=== PATIENT | female | born 1965 ===

== ENCOUNTER 2018-06-16 08:39 | Day surgery (SDC) | payer OTHER ==
[2018-06-16] VITALS (8 sets, daily range): BP systolic 119–132; BP diastolic 71–83
[~2018-06-16] VITALS: Ht 157.5 cm; Wt 62.6 kg
--- NOTE | 2018-06-16 07:55 | Anethesia Preoperative Eval ---
Anesthesia Pre-op PMH/ROS General Date of Evaluation: Jun 16, 2018 Anesthesiologist: Elie ASA Score: ASA 2 Mallampati Score Class I : Soft palate, uvula, fauces, pillars visible Class II: Soft palate, uvula, fauces visible Class III: Soft palate, base of uvula visible Class IV: Only hard plate visible Mallampati Classification: Class II Surgeon: Chuck Diagnosis: GERD Surgical Procedure: EGD Anesthesia History: none Family History: no anesthesia problems Allergies: Coded Allergies: No Known Allergies (Unverified , 06/16/18) Medications: see eMAR Patient NPO?: Yes NPO Date: Jun 15, 2018 NPO Time: 22:00 Past Medical History Cardiovascular: Denies: HTN, CAD, DC, valve dz, arrhythmia, other Pulmonary: Denies: asthma, COPD, MAR[place], other Gastrointestinal/Genitourinary: Reports: GERD; Denies: CRI, ESRD, other Neurologic/Psychiatric: Reports: depression/anxiety; Denies: dementia, CVA, TIA, other Endocrine: Denies: DM, hypothyroidism, steroids, other HEENT: Denies: cataract (L), cataract (R), glaucoma, [place] (L), [place] (R), other Hematology/Immune: Denies: anemia, DVT, bleeding disorder, other Musculoskeletal/Integumentary: Denies: OA, RA, DJD, DDD, edema, other PSxH Narrative: Denies Anesthesia Pre-op Phys. Exam Physician Exam see chart Constitutional: NAD Cardiovascular: RRR Respiratory: CTA Airway Exam Mallampati Score: Class II MO: full ROM: full Teeth: intact Anesthesia Pre-op A/P Labs see chart Studies Pre-op Studies: EKG - sr Risk Assessment & Plan Assessment: ASA II Plan: MAC Status Change Before Surgery: No Pre-Antibiotics Drug: N/A Dorothy Gross MD Jun 16, 2018 07:55
--- NOTE | 2018-06-16 10:15 | Short Stay Surgery H&P ---
History of Present Illness History of Present Illness Chief Complaint Abdominal pains/GERDs HPI Maddi Harrison is a 53 year old female who was admitted on for GERD/ abdominal pains Patient History Past Surgeries: (1) Previous section Review of Systems Cardiovascular: Reports: no symptoms Skeletal: Reports: trauma Gastrointestinal: Reports: gastro esophageal reflux disease Genitourinary: Reports: no symptoms Neurologic: Reports: no symptoms Endocrine: Reports: no symptoms Hematologic: Reports: no symptoms Physical Exam Labs Laboratory Tests Test 06/16/18 08:55 Urine HCG, Qualitative Negative (NEGATIVE) Skin: normal HENT: normal Heart: normal Lungs: normal Abdomen: abnormal Extremities: normal Genitourinary: normal Plan Plan of Care Upper GI.endoscopy and biopsy Preop Interventions None. Summary of Findings See the reports Attestation Are the patient's medical conditions optimized for surgery? Jorge Woods MD Jun 16, 2018 10:15
--- NOTE | 2018-06-16 10:16 | Pre-Procedure Note/Attestation ---
Pre-Procedure Note/Attestation Complete Prior to Procedure Planned Procedure: left Procedure Narrative: Examination of the upper GI tract via endoscopy Indications for Procedure Pre-Operative Diagnosis: R/O Gastritis/peptic ulcer/esophagitis Attestation I attest that I discussed the nature of the procedure; its benefits; risks and complications; and alternatives (and the risks and benefits of such alternatives ), prior to the procedure, with the patient (or the patient's legal phone representative). I attest that, if there was a reasonable possibility of needing a blood transfusion, the patient (or the patient's legal phone representative) was given the [facility] standardized written summary, pursuant to the [place] Blood Safety Act ([place] Health and Safety Code # 1645, as amended). I attest that I re-evaluated the patient just prior to the surgery and that there has been no change in the patient's H&P, except as documented below: Jorge Woods MD Jun 16, 2018 10:16
[2018-06-16] MEDS ORDERED: LR 1000ml ONE (10:30)
[2018-06-16] MEDS ORDERED: Lidocaine 1% MPF 10mg/ml 5ml ONE (10:30)
[2018-06-16] MEDS ORDERED: Propofol 200mg/20ml IV ONE (10:30)
[2018-06-16] MEDS ORDERED: OMEPRAZOLE40 M1 ORAL (10:30)
[2018-06-16] MEDS ORDERED: GAVISCON LIQUI355 ML PO (10:34)
[2018-06-16] MEDS ORDERED: ZANTAC150 MG ORAL (10:34)
--- NOTE | 2018-06-16 10:49 | Endoscopy Procedure Note ---
Endoscopy Procedure Note General Indication for Procedure: Abdominal/epigastric pain Procedures Performed: EGD - Completely normal upper GI. endoscopy; biopsy was obtained per random from gastric body. Specimen: yes Pt Tolerated Procedure Well: Yes Estimated Blood Loss: none Anesthesia Anesthesiologist: Dr. Delgadillo Anesthesia: moderate sedation Medications Medication Given: see anesthesia record Inserted Devices Implant(s) used?: No Quality Quality of Bowel Preparation: Excellent Was there any complications?: No GI Core Measures 50 yrs or older w/o bx or poly: Not Applicable 10yrs. F/U not recommended: Not Applicable If not recommended, why?: Med reason:<3 yrs.: System Reason:<3 yrs.: Jorge Woods MD Jun 16, 2018 10:49
--- NOTE | 2018-06-16 10:50 | Discharge Instructions ---
Discharge Instructions Discharge Instructions Follow up with: Visit the docotor after 2 weeks in the office For Congestive Heart Failure Reminder Report to your physician any weight gain of 5 pounds or more in one week. Jorge Woods MD Jun 16, 2018 10:50
--- NOTE | 2018-06-16 11:00 | Immediate Post-Op Evaluation ---
Immediate Post-Op Evalulation Immediate Post-Op Evalulation Procedure: EGD Date of Evaluation: Jun 16, 2018 Time of Evaluation: 11:01 IV Fluids: 300 Blood Products: 0 Estimated Blood Loss: 0 Urinary Output: 0 Blood Pressure Systolic: 129 Blood Pressure Diastolic: 71 Pulse Rate: 79 Respiratory Rate: 16 O2 Sat by Pulse Oximetry: 99 Temperature (Fahrenheit): 97.5 Pain Score (1-10): 0 Nausea: No Vomiting: No Complications 0 Patient Status: awake, reacts, patent, none Hydration Status: adequate Drug: N/A Dorothy Gross MD Jun 16, 2018 11:00
--- NOTE | 2018-06-16 11:01 | 48 Hour Post Anesthesia Eval ---
Post Anesthesia Evaluation Procedure: EGD Date of Evaluation: Jun 16, 2018 Airway: patent Nausea: No Vomiting: No Pain Intensity: 0 Hydration Status: adequate Cardiopulmonary Status: at baseline Mental Status/LOC: patient returned to baseline Post-Anesthesia Complications: 0 Follow-up care needed: ready to discharge Dorothy Gross MD Jun 16, 2018 11:01
--- NOTE | 2018-06-16 16:30 | Pre-op HX & Phy Repo 2 SIG ---
DATE OF ADMISSION: 06/16/2018 HISTORY OF PRESENT ILLNESS: The patient is a 53-year-old female who is being seen prior to undergoing the procedure of upper GI endoscopy for which she has been scheduled to receive for evaluation of gastrointestinal symptoms that she has been complaining subsequent to her work injury. The patient at this time tells me that she has been experiencing discomfort and pain over the upper part of the abdomen and that has happened subsequent to her work injury when she started on the nonsteroidal anti-inflammatory agents such as ibuprofen that she is still taking. She has also occasionally taken other medications such as Advil. She reports that these pains are radiating towards the chest and she is occasionally having some nausea, but no vomiting. There has been no history of hematemesis, melena, or hematochezia. She reports that her weight has not changed. She denies having any difficulty swallowing at this point. She reports that she occasionally does have constipation. 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 At this point, she is still complaining of these symptoms, though she has been recently started on Protonix by other physicians that she is constantly taking with some good results. She denies any rectal bleeding either. PAST MEDICAL HISTORY: Mostly significant for possible hyperlipidemia. PAST SURGICAL HISTORY: She has had C-sections and abdominoplasty. ALLERGIES: Nonsignificant. FAMILY HISTORY: Nonsignificant. HABITS: She denies drinking alcohol or smoking cigarettes. MEDICATIONS: List of present medications, she is taking medications for high cholesterol and she is taking Protonix and ibuprofen, and occasionally Advil. REVIEW OF SYSTEMS: Basically history of present illness and mostly she is experiencing pain over the upper and lower part of the body. She also reports that she is extremely anxious. PHYSICAL EXAMINATION: GENERAL: At this time reveals alert and oriented female, does not seem to be in any acute distress. She looks well developed and nourished. VITAL SIGNS: All stable. HEENT: Normocephalic. Pupils are equal in size and reactive to light and accommodation. No visible jaundice. Buccal cavity, tongue midline, well hydrated. No ulcers. NECK: Supple. No JVD, thyromegaly, or adenopathy. CHEST: Clear to auscultation and percussion. No rales or rhonchi. HEART: S1, S2 normal. Regular rhythm. No gallops or murmur. ABDOMEN: Soft, but there are areas of tenderness over the upper part of the abdomen as I examine. There is tenderness basically over the epigastric area. There is no organomegaly. Bowel sounds are present. There is a well-healed scar over the lower part of the abdomen consistent with prior surgery, as I mentioned. NEUROLOGIC: Nonsignificant and stable. INITIAL PREOPERATIVE IMPRESSION: 1. Abdominal pain, epigastric pain of uncertain etiology, rule out NSAID-induced gastropathy; rule out peptic ulcer disease, gastritis, esophagitis secondary to use of NSAID medication. 2. Constipation. RECOMMENDATION: The applicant at this time seems to be quite stable to undergo the procedure of upper GI endoscopy for which she has been scheduled. She understands the risks and benefits and will sign the consent. Said Ashanti Woods DR: CUCO JOB#: [id number] CC:
--- NOTE | 2018-06-16 16:45 | Operative Note - Dictated ---
DATE OF OPERATION: 06/16/2018 SURGEON: Jorge Woods M.D. PROCEDURE: Esophagogastroduodenoscopy with biopsy. POSTOPERATIVE DIAGNOSIS: Completely normal upper GI endoscopy. Biopsy was taken per random from gastric body. MEDICATION USED: Per Dr. Delgadillo, anesthesiologist. INSTRUMENT: GIF Olympus upper GI video endoscope. DESCRIPTION OF PROCEDURE: The patient after arriving in the endoscopy unit, was told about risks and benefits of the procedure, which she accepted and signed informed consent. She was then put on the left lateral decubitus position. After adequate IV sedation, the scope was gently passed through the cricopharyngeal area, was lodged into the upper esophagus, and gradually advanced towards gastroesophageal junction. The entire length of esophagus looked normal. There was no any evidence of inflammatory process, ulceration, or stricture, etc. GE junction also looked normal without any evidence of hiatal hernia or Perera's mucosa. At this time, the scope was advanced into the stomach. Gastric cavity was distended with insufflation of air. The areas of the fundus and the body and the antrum were examined in gradual fashion, which revealed completely normal gastric mucosa and no evidence of ulcers, tumors, polyps, bleeding site etc. was found. A retroflexion maneuver was also applied and the area of the gastroesophageal junction was examined in a closer fashion, which revealed normal findings. At this time, one random biopsy from gastric body obtained and subsequently scope was passed through the antrum and the pylorus and first and second portion of duodenum were examined that they looked completely normal. Finally, the scope was pulled out. The procedure was terminated. The patient tolerated the procedure well, left the endoscopy room in a good condition. Jorge Woods M.D. DR: OSBALDO JOB#: [id number] CC:
== END 2018-06-16 12:05 | disposition home or self-care (01) ==
LOC: GAS 08:39
DX: K29.50 Unspecified chronic gastritis without bleeding (principal); K21.9 Gastro-esophageal reflux disease without esophagitis; E78.00 Pure hypercholesterolemia, unspecified; K59.00 Constipation, unspecified; F32.9 Major depressive disorder, single episode, unspecified; F41.9 Anxiety disorder, unspecified
CPT/HCPCS: 43239; 81025; J2704; 94003; 94150